=== PATIENT | female | born 1945 | race Caucasian/White ===

== ENCOUNTER → 2020-09-01 | Outpatient (CLI) | payer MEDICARE, OTHER ==
[~2020-09-01] MED LIST: ALEN35TA41 PO; ASPI-1444 PO; CALC-1085 PO; ESOM40CA PO; FIORIT PO; FISH1CAP51 PO; HYDR25TA2 PO; LABE100T51 PO; LEVO50 PO; LEVO75 PO; MULT-660 PO; PRAV40TA4 PO
== END | disposition home or self-care (01) ==
LOC: RADPV 09:08
PROVIDERS: ATTEND Family Medicine
DX: M19.041 Primary osteoarthritis, right hand (principal); M19.042 Primary osteoarthritis, left hand
CPT/HCPCS: 73130-TC